=== PATIENT | male | born 1930 | race Caucasian/White ===

== ENCOUNTER 2017-03-08 11:59 | Inpatient (IN) | payer BC, MEDICARE ==
[2017-03-08] MEDS ORDERED: IPRATROPIUM-ALBUTEROL 3 ML NEB INHALATION STA (12:12)
[2017-03-08] MEDS ORDERED: MAGNESIUM SULFATE-D5W PMX 1 GM in DEXTROSE/WATER 1 100ML.BAG IVPB STA (12:12)
--- NOTE | 2017-03-08 12:23 | ED ---
SOB HPI - General Stated Complaint: TARIQ Time Seen by Provider: 03/08/17 12:00 Source: patient, EMS, RN notes reviewed Mode of arrival: EMS - History of Present Illness Initial Comments: This is a 86-year-old male with a history of pneumonia COPD who had the onset yesterday of shortness breath which is got progressively worse today. He denies any chest pain is of a cough no fevers chills sweats no overt phlegm production he was brought in by paramedics he was given IV solu- Medrol as well as to updraft treatments in route. He did get some improvement. He was noted to be hypoxemic per paramedics. MD Complaint: shortness of breath - Related Data Home Medications Medication Instructions Recorded Confirmed Atorvastatin [Lipitor] 20 mg PO DAILY 05/03/15 03/08/17 Clopidogrel [Plavix] 75 mg PO DAILY 05/04/15 03/08/17 Carvedilol [Coreg] 6.25 mg PO BID 03/08/17 03/08/17 Famotidine [Pepcid] 20 mg PO DAILY 03/08/17 03/08/17 Furosemide [Lasix] 40 mg PO BID 03/08/17 03/08/17 Gabapentin [Neurontin] 100 mg PO TID 03/08/17 03/08/17 Linagliptin [Tradjenta] 5 mg PO DAILY 03/08/17 03/08/17 Tamsulosin HCl [Flomax] 0.4 mg PO DAILY 03/08/17 03/08/17 Allergies Allergy/AdvReac Type Severity Reaction Status Date / Time ALL INSULIN AdvReac Uncoded 03/08/17 12:28 Review of Systems ROS Statement: Those systems with pertinent positive or pertinent negative responses have been documented in the HPI. ROS Other: All systems not noted in ROS Statement are negative. 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 Unknown of exactly what it was. General Exam - General Exam Comments Initial Comments: This is a well-developed well-nourished awake alert oriented 3 male General appearance: alert, anxious Head exam: Present: atraumatic, normocephalic, normal inspection Eye exam: Present: normal appearance, PERRL, EOMI. Absent: scleral icterus, conjunctival injection, periorbital swelling ENT exam: Present: normal exam, mucous membranes moist Neck exam: Present: normal inspection. Absent: tenderness, meningismus, lymphadenopathy Respiratory exam: Present: accessory muscle use (Patient is to [place] admitted breath sounds on the right side wheezes on the left side.), decreased breath sounds. Absent: respiratory distress, wheezes, rales, rhonchi, stridor Cardiovascular Exam: Present: regular rate, normal rhythm, normal heart sounds. Absent: systolic murmur, diastolic murmur, rubs, gallop, clicks GI/Abdominal exam: Present: soft, normal bowel sounds. Absent: distended, tenderness, guarding, rebound, rigid Extremities exam: Present: normal inspection, full ROM, normal capillary refill , pedal edema (Trace edema.). Absent: tenderness, joint swelling, calf tenderness Back exam: Present: normal inspection Neurological exam: Present: alert, oriented X3, CN II-XII intact Psychiatric exam: Present: normal affect, normal mood Skin exam: Present: warm, dry, intact, normal color. Absent: rash Course Vital Signs 03/08/17 03/08/17 03/08/17 12:08 12:31 12:41 Temperature 97.8 F Pulse Rate 97 100 101 H Respiratory 30 H Rate Blood Pressure 126/70 O2 Sat by Pulse 94 L Oximetry 03/08/17 03/08/17 13:30 14:38 Temperature 98.2 F Pulse Rate 91 89 Respiratory 20 18 Rate Blood Pressure 144/71 147/73 O2 Sat by Pulse 92 L 94 L Oximetry Medical Decision Making - Medical Decision Making I did discuss findings with the patient family members patient will be admitted I did discuss case with Dr. Best additionally the patient is request that he be no code. - Lab Data Result diagrams: 03/08/17 12:03/08/17 12: Lab Results 03/08/17 03/08/17 03/08/17 Range/Units 12: 12: 12: WBC 9.6 (3.8-10.6) k/uL RBC 4.65 (4.30-5.90) m/uL Hgb 11.3 L (13.0-17.5) gm/dL Hct 38.9 L (39.0-53.0) % MCV 83.8 (80.0-100.0) fL MCH 24.3 L (25.0-35.0) pg MCHC 28.9 L (31.0-37.0) g/dL RDW 19.6 H (11.5-15.5) % Plt Count 400 (150-450) k/uL Neutrophils % 80 % Lymphocytes % 8 % Monocytes % 7 % Eosinophils % 3 % Basophils % 1 % Neutrophils # 7.7 (1.3-7.7) k/uL Lymphocytes # 0.7 L (1.0-4.8) k/uL Monocytes # 0.7 (0-1.0) k/uL Eosinophils # 0.2 (0-0.7) k/uL Basophils # 0.1 (0-0.2) k/uL Hypochromasia Marked Anisocytosis Slight Microcytosis Slight PT (9.0-12.0) sec INR (<1.2) APTT (22.0-30.0) sec Sodium 137 (137-145) mmol/L Potassium 4.0 (3.5-5.1) mmol/L Chloride 100 (98-107) mmol/L Carbon Dioxide 29 (22-30) mmol/L Anion Gap 8 mmol/L BUN 16 (9-20) mg/dL Creatinine 1.00 (0.66-1.25) mg/dL Est GFR (MDRD) Af Amer >60 (>60 ml/min/1.73 sqM) Est GFR (MDRD) Non-Af >60 (>60 ml/min/1.73 sqM) Glucose 163 H (74-99) mg/dL Calcium 8.7 (8.4-10.2) mg/dL Magnesium 2.0 (1.6-2.3) mg/dL Total Bilirubin 0.3 (0.2-1.3) mg/dL AST 15 L (17-59) U/L ALT 25 (21-72) U/L Alkaline Phosphatase 112 (38-126) U/L Total Creatine Kinase 29 L (55-170) U/L CK-MB (CK-2) 2.4 (0.0-2.4) ng/mL CK-MB (CK-2) Rel Index 8.3 Troponin I 0.015 (0.000-0.034) ng/mL NT-Pro-B Natriuret Pep pg/mL Total Protein 6.1 L (6.3-8.2) g/dL Albumin 2.5 L (3.5-5.0) g/dL 03/08/17 03/08/17 Range/Units 12:27 12:27 WBC (3.8-10.6) k/uL RBC (4.30-5.90) m/uL Hgb (13.0-17.5) gm/dL Hct (39.0-53.0) % MCV (80.0-100.0) fL MCH (25.0-35.0) pg MCHC (31.0-37.0) g/dL RDW (11.5-15.5) % Plt Count (150-450) k/uL Neutrophils % % Lymphocytes % % Monocytes % % Eosinophils % % Basophils % % Neutrophils # (1.3-7.7) k/uL Lymphocytes # (1.0-4.8) k/uL Monocytes # (0-1.0) k/uL Eosinophils # (0-0.7) k/uL Basophils # (0-0.2) k/uL Hypochromasia Anisocytosis Microcytosis PT 10.8 (9.0-12.0) sec INR 1.1 (<1.2) APTT 25.9 (22.0-30.0) sec Sodium (137-145) mmol/L Potassium (3.5-5.1) mmol/L Chloride (98-107) mmol/L Carbon Dioxide (22-30) mmol/L Anion Gap mmol/L BUN (9-20) mg/dL Creatinine (0.66-1.25) mg/dL Est GFR (MDRD) Af Amer (>60 ml/min/1.73 sqM) Est GFR (MDRD) Non-Af (>60 ml/min/1.73 sqM) Glucose (74-99) mg/dL Calcium (8.4-10.2) mg/dL Magnesium (1.6-2.3) mg/dL Total Bilirubin (0.2-1.3) mg/dL AST (17-59) U/L ALT (21-72) U/L Alkaline Phosphatase (38-126) U/L Total Creatine Kinase (55-170) U/L CK-MB (CK-2) (0.0-2.4) ng/mL CK-MB (CK-2) Rel Index Troponin I (0.000-0.034) ng/mL NT-Pro-B Natriuret Pep 88538 pg/mL Total Protein (6.3-8.2) g/dL Albumin (3.5-5.0) g/dL - EKG Data -: EKG Interpreted by Me EKG shows normal: sinus rhythm (Rate of 79 evidence of A. fib QRS 106 QT since QTC of 4:30/493 left exodeviation nonspecific septal changes) - Radiology Data Radiology results: report reviewed (I did review the imaging and report possible pneumonia increased density involving the right lung gastric pull- through shows possible food or debris within the lumen blood in the costophrenic angle on the left.), image reviewed Disposition Clinical Impression: Congestive heart failure, Acute exacerbation of chronic obstructive airways disease Disposition: ADMITTED IP TO THIS [facility] Condition: Stable Referrals: David Canseco MD [Primary Care Provider] - 1-2 days
[2017-03-08 12:49] LABS: ALT 25 U/L (21-72); AST 15 U/L (17-59); Albumin 2.5 g/dL (3.5-5.0); Alkaline Phosphatase 112 U/L (38-126); Anion Gap 8 mmol/L; Blood Urea Nitrogen 16 mg/dL (9-20); Calcium 8.7 mg/dL (8.4-10.2); Carbon Dioxide 29 mmol/L (22-30); Chloride 100 mmol/L (98-107); Glucose 163 mg/dL (74-99); INR 1.1 (<1.2); Partial Thromboplastin Time 25.9 sec (22.0-30.0); Prothrombin Time 10.8 sec (9.0-12.0); Sodium 137 mmol/L (137-145); Total Bilirubin 0.3 mg/dL (0.2-1.3); Total Protein 6.1 g/dL (6.3-8.2)
[2017-03-08 13:03] LABS: Anisocytosis Slight; Basophils # (A) 0.1 k/uL (0-0.2); Basophils % (A) 1 %; Eosinophils # (A) 0.2 k/uL (0-0.7); Eosinophils % (A) 3 %; HCT 38.9 % (39.0-53.0); HGB 11.3 gm/dL (13.0-17.5); Hypochromasia Marked; Lymphocytes # (A) 0.7 k/uL (1.0-4.8); Lymphocytes % (A) 8 %; MCH 24.3 pg (25.0-35.0); MCHC 28.9 g/dL (31.0-37.0); MCV 83.8 fL (80.0-100.0); Mean Platelet Volume 9.7; Microcytosis Slight; Monocytes # (A) 0.7 k/uL (0-1.0); Monocytes % (A) 7 %; Neutrophils # (A) 7.7 k/uL (1.3-7.7); Neutrophils % (A) 80 %; Platelet Count 400 k/uL (150-450); RBC 4.65 m/uL (4.30-5.90); RDW 19.6 % (11.5-15.5); WBC 9.6 k/uL (3.8-10.6)
[2017-03-08 13:12] LABS: Creatine Kinase MB 2.4 ng/mL (0.0-2.4); Troponin I 0.015 ng/mL (0.000-0.034)
--- NOTE | 2017-03-08 13:13 | XR ---
EXAMINATION TYPE: XR chest 2V DATE OF EXAM: 03/08/2017 COMPARISON: Prior chest x-ray 05/05/[address] chest 15 May 2015 HISTORY: Difficulty breathing TECHNIQUE: Frontal and lateral views of the chest are obtained. FINDINGS: There has been interval increase in density involving the right lung. Gastric pull-through shows probable food or debris within the lumen. Blunting of the costophrenic angle is compatible wit h pleural effusion likely on the left. No definite pneumothorax. Heart is obscured. Patient is rotate d. IMPRESSION: Findings could represent pneumonia, consider aspiration and associated effusions. Consid er obstruction at the level of the hemidiaphragm and pull-through.
[2017-03-08] MEDS ORDERED: FUROSEMIDE 10 MG/ML 4 ML VIAL IV STA ×2 (15:05→20:25)
[2017-03-08] MEDS ORDERED: SODIUM CHLORIDE 0.9% 1,000 ML IV SCH (15:15)
[2017-03-08] MEDS: IPRATROPIUM-ALBUTEROL 3 ML NEB INHALATION SCH ×3 (16:09→23:17)
[2017-03-08] MEDS: GABAPENTIN 100 MG CAP PO SCH ×2 (18:27→22:58)
[2017-03-08] MEDS ORDERED: FUROSEMIDE 10 MG/ML 4 ML VIAL ONE (20:23)
[2017-03-08] MEDS ORDERED: MORPHINE SULFATE 5 MG/ML SYRINGE IVP STA (20:25)
[2017-03-08] MEDS: FUROSEMIDE 40 MG TAB PO SCH (20:39)
--- NOTE | 2017-03-08 20:41 | P.HPIM ---
History of Present Illness H&P Date: 03/08/17 Chief Complaint: Shortness of breath This is an 84-year-old male. His primary care physician is Dr. Mccloud. presented to the hospital from [facility] due to unresponsiveness. Last admitted in December 07, 2016 for Aspiration pneumonia, volume overload secondary to kidney injury associated with diastolic heart failure . Other medical history includes COPD, hypoglycemia. Patient had problems with fluid overload mostly from renal failure and diastolic heart failure. He was on IV Lasix. Zaroxolyn added by nephrology. He continued to have problems with hypoglycemia intermittently. Seen by endocrinology, decision not to use any insulin, only to use Tradjenta 5 mg daily. Patient was considered stable for discharge. Has completed his antibiotic and prednisone medications. Transfer back to [facility] under the care of Dr. Canseco. He apparently patient is coming to the ER with hypoxia secondary to difficulty breathing. Patient was found to be hypoxic by the EMS received IV Solu-Medrol in route. On evaluation patient was lying comfortably in bed complaining of shortness of breath while talking, also endorses productive sputum, denies any fever or chills. Patient has lost the desire to live but still would like medical management. It has been addressed in the past but patient would like to be treated medically. He is unable to walk due to generalized debility, he does not want to go to a rehabilitation and has always desired to be at home with his son. Was discharged to [facility] in the last discharge in November/2016 but is currently admitted from his house. Checks x-ray suggestive of consolidations favoring aspiration pneumonia along with infiltrate suggestive of CHF exacerbation. BNP is elevated. Patient would be admitted for management of aspiration pneumonia along with CHF exacerbation. Pulmonary and cardiology will be consulted. There is a concern for possible obstruction as food debris seen in the gastric pull- through which might be causing recurrent aspiration. GI consulted Review of Systems Constitutional: Reports anorexia, Reports fatigue, Reports malaise, Reports poor appetite, Denies chills, Denies fever Eyes: denies diplopia, denies dry eye Ears, nose, mouth and throat: Denies ant. neck pain, Denies dysphagia, Denies headache, Denies hoarseness, Denies nose pain, Denies odynophagia, Denies post- nasal drip, Denies sore throat, Denies voice changes Cardiovascular: Reports decreased exercise tolerance, Reports dyspnea on exertion, Reports edema, Reports shortness of breath, Denies chest pain, Denies orthopnea, Denies palpitations Respiratory: Reports congestion, Reports cough, Reports cough with sputum, Reports dyspnea, Reports excessive sputum, Reports home oxygen Gastrointestinal: Denies abdominal pain, Denies bloating, Denies constipation, Denies hematemesis, Denies hematochezia, Denies indigestion Musculoskeletal: Denies arm numbness/tingling, Denies leg numbness/tingling, Denies limitation of motion, Denies muscle weakness Integumentary: Denies lesions, Denies rash Neurological: Denies motor disturbance, Denies numbness, Denies paralysis, Denies seizures Psychiatric: Reports depression, Reports hopelessness, Denies insomnia Endocrine: Reports fatigue, Reports low blood sugars 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 His smoking use included Cigarettes. He has a 140.00 pack-year smoking history. He uses smokeless tobacco. He reports that he drinks about 1.8 oz of alcohol per week . He reports that he does not use drugs. Single lives alone but her son lives on same property in a separate house. Daughter is semi truck driver for both him and his son. Patient was discharged to [facility] in the last admission but currently is living with his son again. He does not have home oxygen or CPAP, does have nebulizer.) - Past Family History Mother History Unknown: Yes Father Family Medical History: CVA/TIA Sister(s) Family Medical History: Memory Impairment Additional Family Medical History / Comment(s): Dementia Brother(s) Additional Family Medical History / Comment(s): Heart problems. Unknown of exactly what it was. Medications and Allergies Home Medications Medication Instructions Recorded Confirmed Type Atorvastatin [Lipitor] 20 mg PO DAILY 05/03/15 03/08/17 History Clopidogrel [Plavix] 75 mg PO DAILY 05/04/15 03/08/17 History Carvedilol [Coreg] 6.25 mg PO BID 03/08/17 03/08/17 History Famotidine [Pepcid] 20 mg PO DAILY 03/08/17 03/08/17 History Furosemide [Lasix] 40 mg PO BID 03/08/17 03/08/17 History Gabapentin [Neurontin] 100 mg PO TID 03/08/17 03/08/17 History Linagliptin [Tradjenta] 5 mg PO DAILY 03/08/17 03/08/17 History Tamsulosin HCl [Flomax] 0.4 mg PO DAILY 03/08/17 03/08/17 History Allergies Allergy/AdvReac Type Severity Reaction Status Date / Time ALL INSULIN AdvReac Uncoded 03/08/17 12:28 Physical Exam Vitals: Vital Signs Temp Pulse Pulse Resp BP BP Pulse Ox 03/08/17 16:34 100 03/08/17 16:12 100 03/08/17 16:09 97.0 F L 98 22 132/84 93 L 03/08/17 15:36 98.2 F 100 20 128/69 94 L 03/08/17 14:38 98.2 F 89 18 147/73 94 L 03/08/17 13:30 91 20 144/71 92 L 03/08/17 12:41 101 H 03/08/17 12:31 100 03/08/17 12:08 97.8 F 97 30 H 126/70 94 L Intake and Output 03/08/17 03/08/17 03/08/17 06:59 14:59 22:59 Intake Total 350 Balance 350 Intake: Oral 350 Other: Weight 59.421 kg 58.513 kg Patient Weight 03/09/17 06:59 Weight 58.513 kg - Constitutional General appearance: average body habitus, mild distress - EENT Eyes: PERRLA, no photophobia, no ptosis - Neck Carotids: bilateral: upstroke normal - Respiratory Respiratory: bilateral: diminished, rales, rhonchi, wheezing, prolonged expiration - Cardiovascular Rhythm: irregularly irregular Heart sounds: normal: S1, S2 Abnormal Heart Sounds: no systolic murmur leg Peripheral Edema: bilateral: 1+, absent: None radial pulse Peripheral Pulses: bilateral: Normal - Gastrointestinal General gastrointestinal: normal bowel sounds, no organomegaly, soft, no tenderness - Integumentary Integumentary: no cellulitis, no cyanotic - Neurologic Neurologic: CNII-XII intact (Patient's appears to have generalized weakness is answering questions appropriately) Results CBC & Chem 7: 03/08/17 12:03/08/17 12: Labs: Abnormal Lab Results - Last 24 Hours (Table) 03/08/17 03/08/17 03/08/17 Range/Units 12: 12: 12: Hgb 11.3 L (13.0-17.5) gm/dL Hct 38.9 L (39.0-53.0) % MCH 24.3 L (25.0-35.0) pg MCHC 28.9 L (31.0-37.0) g/dL RDW 19.6 H (11.5-15.5) % Lymphocytes # 0.7 L (1.0-4.8) k/uL Glucose 163 H (74-99) mg/dL AST 15 L (17-59) U/L Total Creatine Kinase 29 L (55-170) U/L Total Protein 6.1 L (6.3-8.2) g/dL Albumin 2.5 L (3.5-5.0) g/dL Thrombosis Risk Factor Assmnt - DVT/VTE Prophylaxis DVT/VTE Prophylaxis: Pharmacologic Prophylaxis ordered, Mechanical Prophylaxis ordered - Choose All That Apply Each Factor Represents 1 point: Abnormal pulmonary function (COPD) Other Risk Factors: No Other congenital or acquired thrombophilia - If yes, enter type in comment: No Thrombosis Risk Factor Assessment Total Risk Factor Score: 1 Thrombosis Risk Factor Assessment Level: Low Risk Assessment and Plan Plan: #1. Acute hypoxic respiratory failure due to aspiration pneumonia and exacerbation of COPD. volume overload from acute on chronic diastolic heart failure with bilateral pleural effusion seen on chest x-ray patient continues to aspirate from GI obstruction from previous surgeries, started on Flagyl and cefepime to cover and gram-negative and anaerobic bacteria , pulmonary consult placed, cardiology consult placed , continue duo nebs and Solu-Medrol IV , sputum culture. One dose of IV Lasix given in the ER continue Lasix 40 mg by mouth twice daily. #2. Atrial fibrillation. On no antiarrhythmics, rate is controlled. On no anticoagulants other than Plavix. #3. Diabetes, with hypoglycemia, stable #4. Hypertension. On Norvasc. #5. Hyper lipidemia. On statin. #6. BPH. On Flomax. 7. Anemia, unclear etiology. 8. 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 Patient's creatinine 1.6~appears close to his previous baseline. 9. Previous nicotine dependence. Quit smoking. 10. GI prophylaxis with Pepcid 11. DVT prophylaxis with subcutaneous heparin. #12 generalized debility- PTOT consult CODE STATUS- DNR, further discussion about patient's condition will be discussed with the family. Patient expressed the desire of passing comfortably. He is tired of feeling sick. Patient would be an adequate candidate for hospice. We will discuss with the family for transitioning to hospice.
[2017-03-08] MEDS ORDERED: FUROSEMIDE 40 MG TAB PO SCH (21:00)
[2017-03-08] MEDS ORDERED: ONDANSETRON 4 MG/2 ML VIAL IVP PRN (21:37)
[2017-03-08] MEDS: NITROGLYCERIN OINT 1 INCH/GM PACKET TOPICAL SCH ×2 (22:39→22:40)
[2017-03-08] MEDS: metroNIDAZOLE 500 MG TAB PO SCH (22:39)
[2017-03-08] MEDS: CARVEDILOL 6.25 MG TAB PO SCH (22:39)
[2017-03-08] MEDS: HEPARIN SODIUM,PORCINE 5,000 UNIT/ML 1 ML VIAL SQ SCH (22:39)
[2017-03-08] MEDS: MORPHINE SULFATE 5 MG/ML SYRINGE IVP PRN (22:57)
[2017-03-08] MEDS: methylPREDNISolone SOD SUCCI 40 MG/ML 1 ML VIAL IV SCH (23:47)
[2017-03-09 03:40] LABS: Anisocytosis Slight; Basophils % (A) 0 %; Eosinophils % (A) 0 %; HCT 33.5 % (39.0-53.0); HGB 9.9 gm/dL (13.0-17.5); Hypochromasia Marked; Lymphocytes # (A) 0.3 k/uL (1.0-4.8); Lymphocytes % (A) 3 %; MCH 24.6 pg (25.0-35.0); MCHC 29.6 g/dL (31.0-37.0); MCV 83.2 fL (80.0-100.0); Mean Platelet Volume 9.5; Microcytosis Slight; Monocytes # (A) 0.3 k/uL (0-1.0); Monocytes % (A) 3 %; Neutrophils # (A) 10.4 k/uL (1.3-7.7); Neutrophils % (A) 94 %; Platelet Count 357 k/uL (150-450); RBC 4.02 m/uL (4.30-5.90); RDW 18.8 % (11.5-15.5); WBC 11.1 k/uL (3.8-10.6)
[2017-03-09 03:56] LABS: Anion Gap 6 mmol/L; Blood Urea Nitrogen 20 mg/dL (9-20); Calcium 8.6 mg/dL (8.4-10.2); Carbon Dioxide 31 mmol/L (22-30); Chloride 100 mmol/L (98-107); Glucose 182 mg/dL (74-99); Sodium 137 mmol/L (137-145)
[2017-03-09] MEDS: IPRATROPIUM-ALBUTEROL 3 ML NEB INHALATION SCH ×5 (04:23→19:55)
[2017-03-09] MEDS: CARVEDILOL 6.25 MG TAB PO SCH (06:00)
[2017-03-09] MEDS ORDERED: LINAGLIPTIN 5 MG TABLET PO SCH (09:00)
[2017-03-09] MEDS ORDERED: FAMOTIDINE 20 MG TAB PO SCH (09:00)
[2017-03-09] MEDS ORDERED: CLOPIDOGREL 75 MG TAB PO SCH (09:00)
[2017-03-09] MEDS ORDERED: TAMSULOSIN 0.4 MG CAP.ER.24H PO SCH (09:00)
[2017-03-09] MEDS ORDERED: ATORVASTATIN 20 MG TAB PO SCH (09:00)
[2017-03-09] MEDS: FUROSEMIDE 40 MG TAB PO SCH (10:59)
[2017-03-09] MEDS: GABAPENTIN 100 MG CAP PO SCH ×3 (10:59→20:37)
[2017-03-09] MEDS: HEPARIN SODIUM,PORCINE 5,000 UNIT/ML 1 ML VIAL SQ SCH ×3 (11:00→23:17)
[2017-03-09] MEDS: metroNIDAZOLE 500 MG TAB PO SCH (11:00)
[2017-03-09] MEDS: NITROGLYCERIN OINT 1 INCH/GM PACKET TOPICAL SCH (11:00)
[2017-03-09] MEDS: methylPREDNISolone SOD SUCCI 40 MG/ML 1 ML VIAL IV SCH (11:01)
[2017-03-09] MEDS: MORPHINE SULFATE 5 MG/ML SYRINGE IVP PRN (12:38)
[2017-03-09 13:09] VITALS: BMI 22.1
--- NOTE | 2017-03-09 13:14 | P.PN ---
Subjective Progress Note Date: 03/09/17 Principal diagnosis: Acute hypoxic respiratory failure This is an 84-year-old male. His primary care physician is Dr. Mccloud. presented to the hospital from [facility] due to unresponsiveness. Last admitted in December 07, 2016 for Aspiration pneumonia, volume overload secondary to kidney injury associated with diastolic heart failure . Other medical history includes COPD, hypoglycemia. Patient had problems with fluid overload mostly from renal failure and diastolic heart failure. He was on IV Lasix. Zaroxolyn added by nephrology. He continued to have problems with hypoglycemia intermittently. Seen by endocrinology, decision not to use any insulin, only to use Tradjenta 5 mg daily. Patient was considered stable for discharge. Has completed his antibiotic and prednisone medications. Transfer back to [facility] under the care of Dr. Canseco. He apparently patient is coming to the ER with hypoxia secondary to difficulty breathing. Patient was found to be hypoxic by the EMS received IV Solu-Medrol in route. On evaluation patient was lying comfortably in bed complaining of shortness of breath while talking, also endorses productive sputum, denies any fever or chills. Patient has lost the desire to live but still would like medical management. It has been addressed in the past but patient would like to be treated medically. He is unable to walk due to generalized debility, he does not want to go to a rehabilitation and has always desired to be at home with his son. Was discharged to [facility] in the last discharge in November/2016 but is currently admitted from his house. Checks x-ray suggestive of consolidations favoring aspiration pneumonia along with infiltrate suggestive of CHF exacerbation. BNP is elevated. Patient would be admitted for management of aspiration pneumonia along with CHF exacerbation. Pulmonary and cardiology will be consulted. There is a concern for possible obstruction as food debris seen in the gastric pull- through which might be causing recurrent aspiration. GI consulted 03/07 Iwas called last night at 8 pm the patient's shortness of breath is worsened. Patient was hypoxic with saturations in the low 60s which improved to low 70s on 6 L. Patient was transitioned to a nonrebreather with improvement of saturations to 90%. Patient expresses desire to pass away and that he does not want to live anymore. Patient appears to have obstruction with food or bruits in the gastric pull-through which is causing repeated injury of the lung with multiple aspirations. Patient does not want any GI evaluation for aggressive management. Family at bedside updated who is agreeable to hospice care. Patient assessed in the morning, lying comfortably in bed, breathing comfortably on nonrebreather. Patient is able to enjoy his food without dysphagia. Patient placed on nasal cannula with increase in morphine and Ativan for anxiety. Based on patient's presentation and gradually worsening, it would be adequate to consider hospice at this point. Objective - Vital Signs Vital signs: Vital Signs Temp 97.0 F L 03/08/17 16:09 Pulse 92 03/09/17 08:20 Resp 21 03/09/17 04:00 BP 132/84 03/08/17 16:09 Pulse Ox 93 L 03/08/17 16:09 Intake & Output 03/08/17 03/09/17 03/09/17 18:59 06:59 18:59 Intake Total 350 400 240 Output Total 500 Balance 350 400 -260 Weight 58.513 kg 65.9 kg Intake: Intake, IV Titration 100 Amount Magnesium Sulfate-D5w Pmx 100 1 gm In Dextrose/Water 1 100ml.bag @ 100 mls/hr IVPB ONCE STA Rx#: [id number] Oral 350 300 240 Output: Urine 500 Other: Voiding Method Urinal # Voids 1 - Exam - Constitutional General appearance: average body habitus, mild distress - EENT Eyes: PERRLA, no photophobia, no ptosis - Neck Carotids: bilateral: upstroke normal - Respiratory Respiratory: bilateral: diminished, rales, rhonchi, wheezing, prolonged expiration - Cardiovascular Rhythm: irregularly irregular Heart sounds: normal: S1, S2 Abnormal Heart Sounds: no systolic murmur leg Peripheral Edema: bilateral: 1+, absent: None radial pulse Peripheral Pulses: bilateral: Normal - Gastrointestinal General gastrointestinal: normal bowel sounds, no organomegaly, soft, no tenderness - Integumentary Integumentary: no cellulitis, no cyanotic - Neurologic Neurologic: CNII-XII intact (Patient's appears to have generalized weakness is answering questions appropriately) - Labs CBC & Chem 7: 03/09/17 03:20 03/09/17 03:20 Labs: Abnormal Lab Results - Last 24 Hours (Table) 03/08/17 03/08/17 03/09/17 Range/Units 12: 12: 03:20 WBC 11.1 H (3.8-10.6) k/uL RBC 4.02 L (4.30-5.90) m/uL Hgb 11.3 L 9.9 L (13.0-17.5) gm/dL Hct 38.9 L 33.5 L (39.0-53.0) % MCH 24.3 L 24.6 L (25.0-35.0) pg MCHC 28.9 L 29.6 L (31.0-37.0) g/dL RDW 19.6 H 18.8 H (11.5-15.5) % Neutrophils # 10.4 H (1.3-7.7) k/uL Lymphocytes # 0.7 L 0.3 L (1.0-4.8) k/uL Carbon Dioxide (22-30) mmol/L Glucose (74-99) mg/dL Total Creatine Kinase 29 L (55-170) U/L 03/09/17 Range/Units 03:20 WBC (3.8-10.6) k/uL RBC (4.30-5.90) m/uL Hgb (13.0-17.5) gm/dL Hct (39.0-53.0) % MCH (25.0-35.0) pg MCHC (31.0-37.0) g/dL RDW (11.5-15.5) % Neutrophils # (1.3-7.7) k/uL Lymphocytes # (1.0-4.8) k/uL Carbon Dioxide 31 H (22-30) mmol/L Glucose 182 H (74-99) mg/dL Total Creatine Kinase (55-170) U/L Assessment and Plan Plan: #1. Acute hypoxic respiratory failure due to aspiration pneumonia and exacerbation of COPD. volume overload from acute on chronic diastolic heart failure with bilateral pleural effusion seen on chest x-ray patient continues to aspirate from GI obstruction from previous surgeries, we'll hold all the antibiotics and Solu-Medrol since patient is comfort care measures only #2. Atrial fibrillation. On no antiarrhythmics, rate is controlled. Hold Plavix #3. Diabetes, with hypoglycemia, stable #4. Hypertension. Hold Norvasc. #5. Hyper lipidemia. Hold statin. #6. BPH. Hold Flomax. 7. Anemia, unclear etiology. 8. 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 Patient's creatinine 1.6~appears close to his previous baseline. 9. Previous nicotine dependence. Quit smoking. Then esophagectomy status post gastric pull-through currently with GI obstruction seen on chest x-ray with food debris is is causing repeated aspiration pneumonia CODE STATUS- DNR, further discussion about patient's condition discussed with the family. Patient expressed the desire of passing comfortably. He is tired of feeling sick. Patient would be an adequate candidate for hospice. Patient currently on comfort measures, hospice team consulted.
--- NOTE | 2017-03-09 15:04 | P.CNPUL ---
History of Present Illness Consult date: 03/09/17 Reason for consult: dyspnea, cough Chief complaint: Shortness of breath History of present illness: This is an 86-year-old gentleman who presented emergency department complaining of shortness of breath. The patient states he hasn't felt well for several days however his shortness of breath worsened yesterday. He does have a cough but states his phlegm is very thick and difficult to expectorate. He did not have fevers or chills at home. The patient states he is a former smoker. He quit 5 months ago. He used to smoke 3 packs per day for 74 years. The patient resides at [facility]. He was apparently found to be hypoxic. 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 His smoking use included Cigarettes. He has a 140.00 pack-year smoking history. He uses smokeless tobacco. He reports that he drinks about 1.8 oz of alcohol per week . He reports that he does not use drugs. Single lives alone but her son lives on same property in a separate house. Daughter is cdl flatbed truck driver for both him and his son. Patient was discharged to [facility] in the last admission but currently is living with his son again. He does not have home oxygen or CPAP, does have nebulizer.) - Past Family History Mother History Unknown: Yes Father Family Medical History: CVA/TIA Sister(s) Family Medical History: Memory Impairment Additional Family Medical History / Comment(s): Dementia Brother(s) Additional Family Medical History / Comment(s): Heart problems. Unknown of exactly what it was. Medications and Allergies Home Medications Medication Instructions Recorded Confirmed Type Atorvastatin [Lipitor] 20 mg PO DAILY 05/03/15 03/08/17 History Clopidogrel [Plavix] 75 mg PO DAILY 05/04/15 03/08/17 History Carvedilol [Coreg] 6.25 mg PO BID 03/08/17 03/08/17 History Famotidine [Pepcid] 20 mg PO DAILY 03/08/17 03/08/17 History Furosemide [Lasix] 40 mg PO BID 03/08/17 03/08/17 History Gabapentin [Neurontin] 100 mg PO TID 03/08/17 03/08/17 History Linagliptin [Tradjenta] 5 mg PO DAILY 03/08/17 03/08/17 History Tamsulosin HCl [Flomax] 0.4 mg PO DAILY 03/08/17 03/08/17 History Allergies Allergy/AdvReac Type Severity Reaction Status Date / Time ALL INSULIN AdvReac Uncoded 03/08/17 12:28 Physical Exam Osteopathic Statement: *. No significant issues noted on an osteopathic structural exam other than those noted in the History and Physical/Consult. Vitals: Vital Signs Temp Pulse Pulse Resp BP BP Pulse Ox 03/09/17 08:20 92 03/09/17 08:08 92 03/09/17 04:00 89 21 03/09/17 00:00 20 03/08/17 23:48 96 03/08/17 23:19 96 03/08/17 21:28 105 H 03/08/17 21:15 105 H 03/08/17 20:00 61 23 03/08/17 16:34 100 03/08/17 16:12 100 03/08/17 16:09 97.0 F L 98 22 132/84 93 L 03/08/17 15:36 98.2 F 100 20 128/69 94 L Intake and Output 03/08/17 03/09/17 03/09/17 22:59 06:59 14:59 Intake Total 350 400 240 Output Total 500 Balance 350 400 -260 Intake: Intake, IV Titration 100 Amount Magnesium Sulfate-D5w Pmx 100 1 gm In Dextrose/Water 1 100ml.bag @ 100 mls/hr IVPB ONCE STA Rx#: [id number] Oral 350 300 240 Output: Urine 500 Other: Voiding Method Urinal Urinal # Voids 1 Weight 58.513 kg 65.9 kg 65.9 kg Patient Weight 03/10/17 06:59 Weight 65.9 kg Gen.: Patient is alert and oriented 3, no acute distress Cardiovascular: Regular rate and rhythm, S1/S2 Lungs: Coarse breath sounds bilaterally with expiratory wheezing Abdomen: Soft nontender nondistended positive bowel sounds Extremities: Results - Laboratory Findings CBC and BMP: 03/09/17 03:20 03/09/17 03:20 PT/INR, D-dimer PT 10.8 sec (9.0-12.0) 03/08/17 12:27 INR 1.1 (<1.2) 03/08/17 12:27 Abnormal lab findings: Abnormal Labs 03/08/17 03/08/17 03/08/17 12:27 12:27 12:27 WBC RBC Hgb 11.3 L Hct 38.9 L MCH 24.3 L MCHC 28.9 L RDW 19.6 H Neutrophils # Lymphocytes # 0.7 L Carbon Dioxide Glucose 163 H AST 15 L Total Creatine Kinase 29 L Total Protein 6.1 L Albumin 2.5 L 03/09/17 03/09/17 03:20 03:20 WBC 11.1 H RBC 4.02 L Hgb 9.9 L Hct 33.5 L MCH 24.6 L MCHC 29.6 L RDW 18.8 H Neutrophils # 10.4 H Lymphocytes # 0.3 L Carbon Dioxide 31 H Glucose 182 H AST Total Creatine Kinase Total Protein Albumin - Diagnostic Findings Chest x-ray: report reviewed, image reviewed Assessment and Plan Assessment: Acute hypoxemia Aspiration pneumonia Acute exacerbation of COPD Dysphasia Atrial fibrillation Diabetes mellitus type 2 Diastolic CHF Hypertension next line dyslipidemia BPH Anemia, microcytic Chronic kidney disease stage III History of nicotine abuse O2 to maintain saturation greater than or equal to 90% Aspiration precautions Antibiotics Sputum culture Pulmicort Mucinex Diuresis Duo nebs Solu-Medrol taper GI consult Speech pathology consult GI and DVT prophylaxis Possible hospice planning
[2017-03-09] MEDS: SCOPOLAMINE 1.5MG/72HR PATCH TRANSDERM PRN (18:31)
[2017-03-09] MEDS ORDERED: BUDESONIDE 0.5 MG/2 ML NEBU INHALATION SCH (20:00)
[2017-03-09] MEDS: guaiFENesin 600 MG TABLET.ER PO SCH (20:37)
[2017-03-10] MEDS: LORazepam 2 MG/ML INJ IV PRN ×2 (00:17→21:20)
[2017-03-10] MEDS: PANTOPRAZOLE 40 MG TABLET PO SCH (05:51)
[2017-03-10] MEDS: HEPARIN SODIUM,PORCINE 5,000 UNIT/ML 1 ML VIAL SQ SCH ×3 (08:30→21:36)
[2017-03-10] MEDS: guaiFENesin 600 MG TABLET.ER PO SCH ×2 (08:30→19:58)
[2017-03-10] MEDS: GABAPENTIN 100 MG CAP PO SCH ×3 (08:30→19:58)
[2017-03-10] MEDS: IPRATROPIUM-ALBUTEROL 3 ML NEB INHALATION PRN ×4 (12:16→20:29)
[2017-03-10] MEDS: MORPHINE SULFATE 5 MG/ML SYRINGE IVP PRN ×2 (14:46→19:58)
--- NOTE | 2017-03-10 15:56 | P.PN ---
Subjective Progress Note Date: 03/10/17 Principal diagnosis: Acute hypoxic respiratory failure This is an 84-year-old male. His primary care physician is Dr. Mccloud. presented to the hospital from [facility] due to unresponsiveness. Last admitted in December 07, 2016 for Aspiration pneumonia, volume overload secondary to kidney injury associated with diastolic heart failure . Other medical history includes COPD, hypoglycemia. Patient had problems with fluid overload mostly from renal failure and diastolic heart failure. He was on IV Lasix. Zaroxolyn added by nephrology. He continued to have problems with hypoglycemia intermittently. Seen by endocrinology, decision not to use any insulin, only to use Tradjenta 5 mg daily. Patient was considered stable for discharge. Has completed his antibiotic and prednisone medications. Transfer back to [facility] under the care of Dr. Canseco. He apparently patient is coming to the ER with hypoxia secondary to difficulty breathing. Patient was found to be hypoxic by the EMS received IV Solu-Medrol in route. On evaluation patient was lying comfortably in bed complaining of shortness of breath while talking, also endorses productive sputum, denies any fever or chills. Patient has lost the desire to live but still would like medical management. It has been addressed in the past but patient would like to be treated medically. He is unable to walk due to generalized debility, he does not want to go to a rehabilitation and has always desired to be at home with his son. Was discharged to [facility] in the last discharge in November/2016 but is currently admitted from his house. Checks x-ray suggestive of consolidations favoring aspiration pneumonia along with infiltrate suggestive of CHF exacerbation. BNP is elevated. Patient would be admitted for management of aspiration pneumonia along with CHF exacerbation. Pulmonary and cardiology will be consulted. There is a concern for possible obstruction as food debris seen in the gastric pull- through which might be causing recurrent aspiration. GI consulted 03/09 Iwas called last night at 8 pm the patient's shortness of breath is worsened. Patient was hypoxic with saturations in the low 60s which improved to low 70s on 6 L. Patient was transitioned to a nonrebreather with improvement of saturations to 90%. Patient expresses desire to pass away and that he does not want to live anymore. Patient appears to have obstruction with food or bruits in the gastric pull-through which is causing repeated injury of the lung with multiple aspirations. Patient does not want any GI evaluation for aggressive management. Family at bedside updated who is agreeable to hospice care. Patient assessed in the morning, lying comfortably in bed, breathing comfortably on nonrebreather. Patient is able to enjoy his food without dysphagia. Patient placed on nasal cannula with increase in morphine and Ativan for anxiety. Based on patient's presentation and gradually worsening, it would be adequate to consider hospice at this point. 03/10 patient is lying comfortably in bed on 4 L of oxygen complains of pain in his back. Hospice home is unable to take patient. Patient is awaiting placement to either [facility] with hospice or home with hospice. Patient denies any other chest pain, breathing difficulty, abdominal pain, nausea or vomiting. Morphine dose increased for pain Objective - Vital Signs Vital signs: Vital Signs Temp 97.0 F L 03/08/17 16:09 Pulse 96 03/10/17 12: Resp 21 03/10/17 04:00 BP 132/84 03/08/17 16:09 Pulse Ox 93 L 03/08/17 16:09 Intake & Output 03/09/17 03/10/17 03/10/17 18:59 06:59 18:59 Intake Total 240 120 Output Total 800 150 125 Balance -560 -150 -5 Weight 65.9 kg 65 kg Intake: Oral 240 120 Output: Urine 800 150 125 Other: Voiding Method Urinal # Voids 1 1 1 - Exam - Constitutional General appearance: average body habitus, mild distress - EENT Eyes: PERRLA, no photophobia, no ptosis - Neck Carotids: bilateral: upstroke normal - Respiratory Respiratory: bilateral: diminished, rales, rhonchi, wheezing, prolonged expiration - Cardiovascular Rhythm: irregularly irregular Heart sounds: normal: S1, S2 Abnormal Heart Sounds: no systolic murmur leg Peripheral Edema: bilateral: 1+, absent: None radial pulse Peripheral Pulses: bilateral: Normal - Gastrointestinal General gastrointestinal: normal bowel sounds, no organomegaly, soft, no tenderness - Integumentary Integumentary: no cellulitis, no cyanotic - Neurologic Neurologic: CNII-XII intact (Patient's appears to have generalized weakness is answering questions appropriately) - Labs CBC & Chem 7: 03/09/17 03:20 03/09/17 03:20 Labs: Microbiology - Last 24 Hours (Table) 03/08/17 12:27 Blood Culture - Preliminary Blood No Growth after 48 hours Assessment and Plan Plan: #1. Acute hypoxic respiratory failure due to aspiration pneumonia and exacerbation of COPD. volume overload from acute on chronic diastolic heart failure with bilateral pleural effusion seen on chest x-ray patient continues to aspirate from GI obstruction from previous surgeries, we'll hold all the antibiotics and Solu-Medrol since patient is comfort care measures only #2. Atrial fibrillation. On no antiarrhythmics, rate is controlled. Hold Plavix #3. Diabetes, with hypoglycemia, stable #4. Hypertension. Hold Norvasc. #5. Hyper lipidemia. Hold statin. #6. BPH. Hold Flomax. 7. Anemia, unclear etiology. 8. 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 Patient's creatinine 1.6~appears close to his previous baseline. 9. Previous nicotine dependence. Quit smoking. Then esophagectomy status post gastric pull-through currently with GI obstruction seen on chest x-ray with food debris is is causing repeated aspiration pneumonia 10 PAD s/p Bypass in left lower extremity 4 weeks ago CODE STATUS- DNR, further discussion about patient's condition discussed with the family. Patient expressed the desire of passing comfortably. He is tired of feeling sick. Patient would be an adequate candidate for hospice. Patient currently on comfort measures, hospice team consulted.
[2017-03-11 02:33] VITALS: BP 167/87; RESP 18; TEMP 97.8
[2017-03-11] MEDS: MORPHINE SULFATE 5 MG/ML SYRINGE IVP PRN ×3 (02:56→13:00)
[2017-03-11] MEDS: LORazepam 2 MG/ML INJ IV PRN (06:40)
[2017-03-11] MEDS: IPRATROPIUM-ALBUTEROL 3 ML NEB INHALATION PRN ×2 (07:54→11:23)
[2017-03-11] MEDS: GABAPENTIN 100 MG CAP PO SCH (08:20)
[2017-03-11] MEDS: HEPARIN SODIUM,PORCINE 5,000 UNIT/ML 1 ML VIAL SQ SCH (08:20)
[2017-03-11] MEDS: PANTOPRAZOLE 40 MG TABLET PO SCH (08:20)
[2017-03-11] MEDS: guaiFENesin 600 MG TABLET.ER PO SCH (08:21)
[2017-03-11] MEDS: SCOPOLAMINE 1.5MG/72HR PATCH TRANSDERM PRN (09:09)
[2017-03-11 11:25] VITALS: PULSE 100
--- NOTE | 2017-03-11 16:02 | P.DS ---
Providers Date of admission: 03/08/17 15:15 Attending physician: Ev Best MD Consults: 03/08/17 20:14 Consult Physician Routine Consulting Provider: Jose Escobar Consult Reason/Comments: COPD exacerbation Do you want consulting provider notified?: Yes Primary care physician: David Ajith [facility] Course: This is an 84-year-old male. His primary care physician is Dr. Mccloud. presented to the hospital from [facility] due to unresponsiveness. Last admitted in December 07, 2016 for Aspiration pneumonia, volume overload secondary to kidney injury associated with diastolic heart failure . Other medical history includes COPD, hypoglycemia. Patient had problems with fluid overload mostly from renal failure and diastolic heart failure. He was on IV Lasix. Zaroxolyn added by nephrology. He continued to have problems with hypoglycemia intermittently. Seen by endocrinology, decision not to use any insulin, only to use Tradjenta 5 mg daily. Patient was considered stable for discharge. Has completed his antibiotic and prednisone medications. Transfer back to [facility] under the care of Dr. Canseco. He apparently patient is coming to the ER with hypoxia secondary to difficulty breathing. Patient was found to be hypoxic by the EMS received IV Solu-Medrol in route. On evaluation patient was lying comfortably in bed complaining of shortness of breath while talking, also endorses productive sputum, denies any fever or chills. Patient has lost the desire to live but still would like medical management. It has been addressed in the past but patient would like to be treated medically. He is unable to walk due to generalized debility, he does not want to go to a rehabilitation and has always desired to be at home with his son. Was discharged to [facility] in the last discharge in November/2016 but is currently admitted from his house. Checks x-ray suggestive of consolidations favoring aspiration pneumonia along with infiltrate suggestive of CHF exacerbation. BNP is elevated. Patient would be admitted for management of aspiration pneumonia along with CHF exacerbation. Pulmonary and cardiology will be consulted. There is a concern for possible obstruction as food debris seen in the gastric pull- through which might be causing recurrent aspiration. GI consulted 03/09 Iwas called last night at 8 pm the patient's shortness of breath is worsened. Patient was hypoxic with saturations in the low 60s which improved to low 70s on 6 L. Patient was transitioned to a nonrebreather with improvement of saturations to 90%. Patient expresses desire to pass away and that he does not want to live anymore. Patient appears to have obstruction with food or bruits in the gastric pull-through which is causing repeated injury of the lung with multiple aspirations. Patient does not want any GI evaluation for aggressive management. Family at bedside updated who is agreeable to hospice care. Patient assessed in the morning, lying comfortably in bed, breathing comfortably on nonrebreather. Patient is able to enjoy his food without dysphagia. Patient placed on nasal cannula with increase in morphine and Ativan for anxiety. Based on patient's presentation and gradually worsening, it would be adequate to consider hospice at this point. 03/10 patient is lying comfortably in bed on 4 L of oxygen complains of pain in his back. Hospice home is unable to take patient. Patient is awaiting placement to either [facility] with hospice or home with hospice. Patient denies any other chest pain, breathing difficulty, abdominal pain, nausea or vomiting. Morphine dose increased for pain 03/11 patient is getting discharged to home with [place]. Patient is comfortable Discharge diagnosis #1. Acute hypoxic respiratory failure due to aspiration pneumonia and exacerbation of COPD, rom acute on chronic diastolic heart failure with bilateral pleural effusion #2. Atrial fibrillation. #3. Diabetes, with hypoglycemia #4. Hypertension. #5. Hyper lipidemia. #6. BPH. 7. Anemia, unclear etiology. 8. 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 Oesophageal cancer s/p esophagectomy with gastric pull-through currently with GI obstruction causing repeated aspiration pneumonia, unknown etiology ? malignancy cannot be excluded 10 PAD s/p Bypass in left lower extremity Disposition - home with hospice Patient Condition at Discharge: Stable Plan - Discharge Summary Discharge Rx Participant: Yes New Discharge Prescriptions: New Scopolamine 1.5MG/72Hr Patch [TransDerm Scop] 1 patch TRANSDERM Q72H PRN patch PRN Reason: Secretions Discontinued Atorvastatin [Lipitor] 20 mg PO DAILY Clopidogrel [Plavix] 75 mg PO DAILY Furosemide [Lasix] 40 mg PO BID Linagliptin [Tradjenta] 5 mg PO DAILY Gabapentin [Neurontin] 100 mg PO TID Famotidine [Pepcid] 20 mg PO DAILY Carvedilol [Coreg] 6.25 mg PO BID Tamsulosin HCl [Flomax] 0.4 mg PO DAILY Discharge Medication List Scopolamine 1.5MG/72Hr Patch [TransDerm Scop] 1 patch TRANSDERM Q72H PRN patch 03/11/17 [Rx] Follow up Appointment(s)/Referral(s): David Canseco MD [Primary Care Provider] - As Needed Patient Instructions/Handouts: Heart Failure (DC), Hospice (DC) Activity/Diet/Wound Care/Special Instructions: [facility]: [phone] Discharge Disposition: HOME WITH HOSPICE
== END 2017-03-11 14:39 | disposition hospice, home (50) | DRG 177 ==
LOC: EC 11:59 → 6SEL 15:15 → 4MS4W 03-10 23:54
PROVIDERS: ADMIT Internal Medicine; ATTEND Internal Medicine
DX: J69.0 Pneumonitis due to inhalation of food and vomit (principal); J96.01 Acute respiratory failure with hypoxia; I50.33 Acute on chronic diastolic (congestive) heart failure; I13.0 Hypertensive heart and chronic kidney disease with heart failure and stage 1 through stage 4 chronic kidney disease, or unspecified chronic kidney disease; J44.0 Chronic obstructive pulmonary disease with (acute) lower respiratory infection; J44.1 Chronic obstructive pulmonary disease with (acute) exacerbation; Q60.0 Renal agenesis, unilateral; N18.3 Chronic kidney disease, stage 3 (moderate); I48.91 Unspecified atrial fibrillation; N40.0 Benign prostatic hyperplasia without lower urinary tract symptoms; E78.5 Hyperlipidemia, unspecified; E11.649 Type 2 diabetes mellitus with hypoglycemia without coma; E11.22 Type 2 diabetes mellitus with diabetic chronic kidney disease; E11.51 Type 2 diabetes mellitus with diabetic peripheral angiopathy without gangrene; R53.81 Other malaise; Z51.5 Encounter for palliative care; F41.9 Anxiety disorder, unspecified; R47.02 Dysphasia; D50.9 Iron deficiency anemia, unspecified; Z66 Do not resuscitate; Z79.02 Long term (current) use of antithrombotics/antiplatelets; Z79.899 Other long term (current) drug therapy; Z87.891 Personal history of nicotine dependence; Z88.8 Allergy status to other drugs, medicaments and biological substances; Z79.84 Long term (current) use of oral hypoglycemic drugs; Z81.8 Family history of other mental and behavioral disorders; Z82.3 Family history of stroke; Z85.01 Personal history of malignant neoplasm of esophagus
CPT/HCPCS: 36415; 71020; 80048; 80053; 82550; 82553; 83735; 83880; 84484; 85025; 85610; 85730; 87040; 93005; 94640; 94760; 96365; 96375; 99285